=== PATIENT | male | born 1950 | race Caucasian/White ===

== ENCOUNTER 2021-06-20 09:31 | Outpatient (CLI) | payer MEDICARE, SELFPAY ==
--- NOTE | 2021-06-20 11:08 | ECG_ITS ---
Measurements Intervals [place] Rate: 52 P: 0 MS: 111 QRS: 25 QRSD: 146 T: 26 QT: 407 QTc: 380 Interpretive Statements SINUS BRADYCARDIA IVCD, WITH FEATURES OF BOTH RBBB/LBBB ABNORMAL ECG Electronically Signed On 06-20-2021 11:41:26 CDT by Waldo Parks D.O.
[2021-06-20 11:50] LABS: Basophils Absolute Auto 0.1 K/mm3 (0.0-0.1); Basophils Percent Auto 0.9 % (0.2-1.2); Eosinophils Absolute Auto 0.2 K/mm3 (0-0.3); Eosinophils Percent Auto 2.3 % (0-4.4); Hematocrit 48.8 % (42.0-52.0); Hemoglobin 15.9 g/dL (14.0-18.0); Immature Granulocyte Absolute 0.06 K/mm3 (0.00-0.031); Immature Granulocyte Percent A 0.7 % (0-0.5); Lymphocytes Percent Auto 23.2 % (18.3-44.2); Mean Corpuscular HGB Conc 32.6 g/dl (32-36); Mean Corpuscular Hemoglobin 29.5 pg (26-34); Mean Corpuscular Volume 90.5 fl (80-100); Mean Platelet Volume 10.4 fl (7.4-10.4); Monocytes Absolute Auto 0.6 K/mm3 (0.1-0.6); Monocytes Percent Auto 6.5 % (2.6-8.5); Neutrophils Absolute Auto 5.7 K/mm3 (1.3-6.7); Neutrophils Percent Auto 66.4 % (45.5-73.1); Platelet Count Result 169 k/mm3 (150-375); Red Blood Count 5.39 M/mm3 (4.6-6.20); Red Cell Distribution Width 13.9 % (11.5-14.5); White Blood Count 8.6 K/mm3 (4.5-10.0)
[2021-06-20 12:00] LABS: INR 0.9; Prothrombin Time 12.2 Seconds (11.1-14.7)
[2021-06-20 12:01] LABS: Partial Thromboplastin Time 29.4 SECONDS (22.3-36.8)
[2021-06-20 12:02] LABS: Alanine Aminotransferase 20 U/L (4-50); Albumin Level 4.4 g/dL (3.5-5.1); Alkaline Phosphatase 76 U/L (38-126); Anion Gap 8 mmol/L (8-16); Aspartate Amino Transferase 21 U/L (17-59); Bilirubin,Total 0.7 mg/dL (0.2-1.3); Blood Urea Nitrogen 22 mg/dL (9-20); Calcium 9.3 mg/dL (8.4-10.2); Carbon Dioxide 26 mmol/L (22-30); Chloride 106 mmol/L (98-107); Estimated Glomerular Filt Rate > 60; Glucose 90 mg/dL (65-110); Potassium 4.2 mmol/L (3.4-5.0); Sodium 140 mmol/L (137-145)
== END 2021-06-20 09:32 | disposition home or self-care (01) ==
LOC: ANHSURGERY 09:40
PROVIDERS: Visit Provider Urology
DX: C61 Malignant neoplasm of prostate (principal); Z01.818 Encounter for other preprocedural examination; R94.31 Abnormal electrocardiogram [ECG] [EKG]
CPT/HCPCS: 36415; 80053; 85025; 85610; 85730; 87086; 87088; 93005

== ENCOUNTER 2021-07-05 00:55 | Day surgery (SDC) | payer MEDICARE, SELFPAY ==
[2021-06-20 10:11] VITALS: BP 152/72; PULSE 57; RESP 18; TEMP 37.1; O2SAT 96; BMI 35.2
[2021-07-05] VITALS (17 sets, daily range): BP systolic 111–162; BP diastolic 56–87; PULSE 57–93; RESP 12–24; TEMP 36.1–36.9; O2SAT 95–100
[2021-07-05] MEDS: LACTATED RINGERS 1,000 ML 30 ML IV CONT ×2 (06:30→12:30)
--- NOTE | 2021-07-05 06:41 | P.PNAN_ITS ---
Anes - Initial Pre Proc Eval Procedure: Operation Date: 07/05/21 07:30 Proposed Procedures p Robotic Assisted Nerve Sparing Prostatectomy, Possible Bilateral Lymph Node Dissection - Jerry Guadarrama MD Date/Time: 07/05/21 06:41 Surgeon: Jerry Guadarrama MD Pre Op Diagnosis: prostate cancer Patient Data Age: 71 Gender: M Height: 1.83 m Weight: 117.7 kg Last Vital Signs Temp 37.1 C 06/20/21 10:11 Pulse 57 L 06/20/21 10:11 Resp 18 06/20/21 10:11 BP 152/72 H 06/20/21 10:11 Pulse Ox 96 06/20/21 10:11 Allergies Allergy/AdvReac Type Severity Reaction Status Date / Time No Known Allergies Allergy Verified 07/05/21 06:40 Home Medications Medication Instructions Recorded Confirmed Type multivitamin [Multiple Vitamin] 1 tablet PO DAILY 06/20/21 06/20/21 History naproxen sodium [Aleve] 440 mg PO BID PRN 06/20/21 06/20/21 History omega-3 fatty acids [[place] 3] 500 mg PO DAILY 06/20/21 06/20/21 History vit C-E-zinc fh-nvxw-eew-zeax 1 cap PO DAILY 06/20/21 06/20/21 History [ICaps AREDS2] Patient hx anesthesia problems: none Family hx anesthesia problems: none [facility] Past Medical History Medical History (Updated 07/05/21 @ 06:41 by Jayant Lomas MD) Obesity MICHELLE on CPAP Prostate cancer Surgical History Surgical History (Updated 07/05/21 @ 06:42 by Jayant Lomas MD) H/O exploratory laparotomy History of appendectomy History of cholecystectomy History of knee surgery Social History Social History Smoking packs per day: 0.75 Smoking cigarettes per day: 15.0 Years smoked: 30 Smoking pack-years: 22.50 Smoking status: Former smoker Tobacco type: cigarettes Smoking end date: 04/28/00 Substance use: never Living arrangements: with family Additional living arrangements comments: Spiritual care concerns: No Anes - Eval Final PreProcedure Day of Procedure 07/05/21 06:41 Patient weight: obese Heart: regular rate and rhythm Lungs: clear to auscultation Airway: Mallampati scale class II Neurological: alert and oriented Last oral intake: >/= 8 hours ASA classification: III Emergent: no Anesthetic plan: proceed Anesthesia type and monitoring: general ETT and standard monitoring Informed Consent: The patient's anesthetic plan and its attendant risks and benefits were discussed with the patient/family/POA. Questions were solicited and answers provided to the satisfaction of the patient/family/POA.
--- NOTE | 2021-07-05 07:27 | P.HP_ITS ---
H&P: HPI History of Present Illness Date/Time: 07/05/21 07:27 Chief Complaint: Adenocarcinoma of prostate Narrative: 71 year old male with adenocarcinoma of prostate presents for robotic assist nerve sparing prostatectomy with possible plnd. Review of Systems Review of Systems: All systems reviewed & are unremarkable except as noted in HPI and below PMFSH Past Medical History Medical History Obesity MICHELLE on CPAP Prostate cancer Surgical History Surgical History H/O exploratory laparotomy History of appendectomy History of cholecystectomy History of knee surgery Social History Social History Smoking packs per day: 0.75 Smoking cigarettes per day: 15.0 Years smoked: 30 Smoking pack-years: 22.50 Smoking status: Former smoker Tobacco type: cigarettes Smoking end date: 04/28/00 Substance use: never Living arrangements: with family Additional living arrangements comments: Spiritual care concerns: No Meds Home Medications and Allergies Home Medications Medication Instructions Recorded Confirmed Type multivitamin [Multiple Vitamin] 1 tablet PO DAILY 06/20/21 07/05/21 History naproxen sodium [Aleve] 440 mg PO BID PRN 06/20/21 07/05/21 History omega-3 fatty acids [[place] 3] 500 mg PO DAILY 06/20/21 07/05/21 History vit C-E-zinc ik-zeje-qyt-zeax 1 cap PO DAILY 06/20/21 07/05/21 History [ICaps AREDS2] Allergies Allergy/AdvReac Type Severity Reaction Status Date / Time No Known Allergies Allergy Verified 07/05/21 06:40 Vital Signs Vital Signs - 24 hr 07/05/21 06:42 Temperature 36.1 C L Pulse Rate 63 Respiratory Rate 16 Blood Pressure 162/87 H Pulse Oximetry 98 Exam Const: General: cooperative, comfortable, alert and awake HENMT: Head: normal to inspection Eyes: General: appearance normal, both eyes and all related structures Resp: Effort & Inspection: normal respiratory effort Cardio: Rate: regular rate Rhythm: regular rhythm Skin: General skin exam: normal color Assessment and Plan Assessment and plan (1) Adenocarcinoma of prostate: Code(s): C61 - Malignant neoplasm of prostate Status: Acute Assessment and Plan: robotic assist nerve sparing prostatectomy with possible plnd. He is aware that due to his exploratory lap, if we are unable to place our ports will terminate procedure and will proceed with xrt.
--- NOTE | 2021-07-05 07:32 | WPDHPUPDATE1 ---
History and Physical Update Update Date/Time: 07/05/21 07:32 History and Physical has been reviewed, including an updated exam of the patient. There are NO changes in the patient's condition. Risks, benefits, and alternatives have been discussed and questions answered. Patient agrees to proceed with procedure.
[2021-07-05] MEDS: ceFAZolin 2 GM/D5W 50 ML 2 GM/50 ML BAG IVPB (07:36)
[2021-07-05] MEDS: ceFAZolin SODIUM 1 GM VIAL 2 GM IV PUSH (11:37)
--- NOTE | 2021-07-05 12:06 | W.PM.PROC2 ---
Procedure Note - Detailed Date of Procedure 07/05/21 Pre-op Diagnosis prostate cancer Post-op Diagnosis same Procedure Performed Robotic assisted nerve-sparing prostatectomy with right pelvic lymph node dissection Surgeon Jerry Guadarrama MD Anesthesia general Description of Procedure Patient was taken to the operative suite correctly identified. Once anesthesia was obtained was placed in low-lying dorsal lithotomy position and prepped draped usual sterile fashion. Eighteen Monegasque Márquez was placed with 20 cc in the balloon. Supraumbilical incision was made carried down to the rectus fascia. Given that he had a prior exploratory laparotomy we did a Sarah approach. Trocar was placed easily into the abdomen. Camera port was placed. He did have some adhesions but these were superior to the areas that we needed to place our working ports. Working ports were placed in appropriate locations. Patient was placed in steep Trendelenburg and the robot was docked. We did a posterior approach. Seminal vesicles were dissected out in their entirety and this passes were transected. Plane between the rectum and the prostate was developed. Bladder was then taken down and the space of Retzius developed bilaterally. Puboprostatic ligaments were taken down. Superficial vein was fulgurated. Dorsal venous complex was isolated using 0 Vicryl in secured to the pubic bone. Bladder neck sparing procedure was then performed. Upon and opening the anterior wall the bladder was noted he had that small little polyp at the 9 o'clock position. We went ahead and excised this and sent it for analysis. We then transected the posterior bladder neck. Seminal vesicles and vas were isolated. Bilateral nerve-sparing was performed the standard fashion. Clips were placed on the vascular pedicles. Dorsal venous complex was then transected. Urethra was also transected. Specimen was placed in Endo-Catch bag. We did right pelvic lymph node dissection with the boundaries being the external iliac vein, obturator nerve, Fritz ligament, bifurcation of the vessels. Clips were placed proximally and distally. Surgicel was placed in the obturator fossa along the neurovascular complex. We then placed a Elan stitch in using 0 Vicryl. Bladder neck was reanastomosed to the urethral stump with good approximation mucosa using a V lock suture in a running fashion. Eighteen Monegasque Márquez was placed inflated with 12 cc in the balloon. 150 cc of saline was used to irrigate the bladder. There was no evidence of extravasation at this time. Lap count needle count sponge counts were correct. I should state that there was some tissue along the rectal wall right near the right apex of the prostate which I excised and sent as a separate specimen also. All lap, needle count sponge counts were correct. A Brent drain was placed in the 3rd port site. This was secured. Robot was undocked. Specimen was brought out through the midline incision. Rectus fascia was closed using 0 Vicryl. Subcuticular stitches were placed. 1% lidocaine was used anesthetize the skin and the ports. Patient is taken recovery room stable condition. Estimated Blood Loss 100 Drains Yes Packing No Pathology yes Complications No immediate complications Condition stable Disposition PACU
[2021-07-05] MEDS: fentaNYL CITRATE INJ (*CRX) 100 MCG/2 ML VIAL 25 MCG IV PUSH ×8 (13:14→13:43)
[2021-07-05] MEDS: HYDROmorphone HCL INJ (*CRX) 1 MG/ML SYR 0.5 MG IV PUSH ×4 (14:02→14:17)
--- NOTE | 2021-07-05 14:40 | ADMGEN ---
This patient, Jayant Miller, was admitted to Medical Room 248-01. Patient/family oriented to hospital policies and general routines including ID bracelet, bed and alarms, visiting hours, pain management, procedures, bathroom and other care routines, personal items, smoking policy, room service/diet, and visiting hours. Information on how to activate the Rapid Response Team has been discussed. Patient/Family are encouraged to report perceived risks to care and to ask questions if they do not understand what they are told or what they should do.
[2021-07-05] MEDS: LACTATED RINGERS 1,000 ML 125 ML IV CONT (15:43)
[2021-07-05] MEDS: HYDROcodone/acetaminophen (*CRX) 5-325 MG TABLET 2 TAB PO (18:04)
[2021-07-06 00:10] VITALS: BP 119/55; PULSE 76; RESP 18; TEMP 37.1; O2SAT 99
[2021-07-06] MEDS: LACTATED RINGERS 1,000 ML 125 ML IV CONT ×2 (00:32→09:14)
[2021-07-06 03:25] VITALS: O2SAT 95
[2021-07-06 04:10] VITALS: BP 131/62; PULSE 61; RESP 16; TEMP 37.1; O2SAT 99
[2021-07-06 05:57] LABS: Hematocrit 40.3 % (42.0-52.0); Hemoglobin 13.2 g/dL (14.0-18.0)
[2021-07-06 05:58] LABS: Anion Gap 5 mmol/L (8-16); Blood Urea Nitrogen 14 mg/dL (9-20); Calcium 8.3 mg/dL (8.4-10.2); Carbon Dioxide 27 mmol/L (22-30); Chloride 104 mmol/L (98-107); Estimated CRCL calculation 78 ml/min; Estimated Glomerular Filt Rate > 60; Glucose 125 mg/dL (65-110); Potassium 4.1 mmol/L (3.4-5.0); Sodium 136 mmol/L (137-145)
[2021-07-06 07:24] LABS: Glucose Point of Care 101 mg/dl (65-105)
[2021-07-06 07:52] VITALS: BP 128/61; PULSE 68; RESP 16; TEMP 36.9; O2SAT 99
[2021-07-06] MEDS: HYDROcodone/acetaminophen (*CRX) 5-325 MG TABLET 1 TAB PO (08:25)
[2021-07-06] MEDS: levoFLOXacin 500 MG TABLET PO (08:27)
--- NOTE | 2021-07-06 08:44 | WPDANESPN ---
Anes - Prog Note Post-Op Date/Time: 07/06/21 08:44 Cardiovascular status: normal Respiratory status: normal Airway patency: baseline Mental status: baseline Post-Op hydration status: normal Vital Signs: Last Vital Signs Temp 98.4 F 07/06/21 07:52 Pulse 68 07/06/21 07:52 Resp 16 07/06/21 07:52 BP 128/61 07/06/21 07:52 Pulse Ox 99 07/06/21 07:52 Pain Score (VAS): 5 I/O: Intake & Output 07/05/21 07/06/21 07/06/21 23:59 07:59 15:59 Intake Total 1120 100 Output Total 2000 Balance 1120 -1900 Laboratory Tests 07/06/21 05:28 07/06/21 05:28 07/05/21 07/06/21 07/06/21 06:20 05:28 05:28 Hgb 13.2 L Hct 40.3 L Sodium 136 L Potassium 4.1 Chloride 104 Carbon Dioxide 27 Anion Gap 5 L BUN 14 D Creatinine 1.00 Estim Creat Clear Calc 78 Estimated GFR > 60 Glucose 125 H POC Capillary Glucose Calcium 8.3 L Blood Type O Positive Antibody Screen Negative 07/06/21 06:56 Hgb Hct Sodium Potassium Chloride Carbon Dioxide Anion Gap BUN Creatinine Estim Creat Clear Calc Estimated GFR Glucose POC Capillary Glucose 101 Calcium Blood Type Antibody Screen Post-procedural complaints: none and other (persistent hiccups. reassured pt most likely d/t air on diaphragm. encouraged ambulation. ) Patient Feedback: Patient satisfied with anesthetic care. . Other Findings: persistent hiccups. reassured pt most likely d/t air on diaphragm. encouraged ambulation. however, pt states hiccups seem to follow eating or drinking so cannot rule out vagal stimulation vs. phrenic. encouraged pt to discuss with Dr. Guadarrama.
--- NOTE | 2021-07-06 12:59 | WPDUROPN2 ---
Progress Note: A&P Assessment and Plan (1) Adenocarcinoma of prostate: Code(s): C61 - Malignant neoplasm of prostate Status: Acute Assessment and Plan: The patient will be discharged home with his KEM drain and meneses. KEM drain will be removed in the office on Sunday and meneses after his cystogram next week. Please teach KEM drain and meneses care. Subjective Subjective Date/Time Seen: 07/06/21 12:59 POD #1 Robotic assisted nerve-sparing prostatectomy with right pelvic lymph node dissection Patient doing well, his KEM drain is still putting out a moderate amount of drainage, meneses is draining well to gravity, no blood in urine. Incisional pain is well managed, no drainage or edema is present. Tolerating diet and activity. Review of Systems Cardiovascular: Cardiovascular: Denies chest pain Respiratory: Respiratory: Reports no additional respiratory complaints Gastrointestinal: Gastrointestinal: Denies abdominal pain, Denies nausea and Denies vomiting Genitourinary: Genitourinary: Denies hematuria and Denies flank pain Exam Resp: Effort & Inspection: normal respiratory effort Cardio: Rate: regular rate GI: Inspection: incision (no edema, drainage or rednes present) and other (KEM drain, draining bloody drainage.) GI Palp: Yes Soft to palpation and No Tenderness to palpation present (GI) : General: Yes no CVA tenderness Urinary Catheter: Urinary Catheter: patent and draining and urine clear Extrem: General: no edema Objective Data Vital Signs Vital Signs: Vital Signs - 24 hr 07/05/21 13:00 07/05/21 13:15 07/05/21 13:30 Temperature Pulse Rate 64 61 66 Respiratory Rate 20 16 14 Blood Pressure 130/70 125/72 142/70 H Pulse Oximetry 95 96 96 07/05/21 13:45 07/05/21 14:00 07/05/21 14:15 Temperature Pulse Rate 90 71 93 Respiratory Rate 14 12 16 Blood Pressure 140/66 154/74 H 119/74 Pulse Oximetry 97 97 100 07/05/21 14:21 07/05/21 14:25 07/05/21 14:40 Temperature 97.2 F L Pulse Rate 93 88 Respiratory Rate 12 14 Blood Pressure 130/79 144/71 H Pulse Oximetry 98 98 100 07/05/21 15:02 07/05/21 15:25 07/05/21 16:25 Temperature 97.2 F L 98.0 F 98.2 F Pulse Rate 77 75 73 Respiratory Rate 14 14 14 Blood Pressure 145/64 H 134/66 146/74 H Pulse Oximetry 96 100 100 07/05/21 20:10 07/05/21 22:56 07/06/21 00:10 Temperature 98.5 F 98.8 F Pulse Rate 64 76 Respiratory Rate 17 18 Blood Pressure 136/56 L 119/55 L Pulse Oximetry 99 100 99 07/06/21 03:25 07/06/21 04:10 07/06/21 07:52 Temperature 98.7 F 98.4 F Pulse Rate 61 68 Respiratory Rate 16 16 Blood Pressure 131/62 128/61 Pulse Oximetry 95 99 99 Intake/Output Intake/Output: Intake & Output 07/03/21 07/04/21 07/05/21 07/06/21 23:59 23:59 23:59 23:59 Intake Total 1870 1100 Output Total 315 2000 Balance 1555 -900 Meds/Results Medications: Active Medications Generic Name Dose Route Start Last Admin Trade Name Freq PRN Reason Stop Dose Admin Hydrocodone Bitart/Acetaminophen 1 tab 07/05/21 14:25 07/06/21 08:25 Hydrocodone/Acetaminophen (*Crx) 5-325 Mg Tablet PO 1 tab Q6H PRN Administration Pain Rated 1-3 Hydrocodone Bitart/Acetaminophen 2 tab 07/05/21 14:25 07/05/21 18:04 Hydrocodone/Acetaminophen (*Crx) 5-325 Mg Tablet PO 2 tab Q6H PRN Administration Pain Rated 4-6 Hyoscyamine 0.125 mg 07/05/21 14:25 Hyoscyamine Sulfate 0.125 Mg Tablet SUBLINGUAL Q4H PRN Bladder Spasm Lactated Ringer's 1,000 mls @ 125 mls/hr 07/05/21 14:25 07/06/21 09:14 Lr - Lactated Ringers Iv IV CONT 125 mls/hr .Q8H PARKER Administration Ketorolac Tromethamine 15 mg 07/05/21 14:25 Ketorolac 15 Mg/Ml Vial (*Bkc) IV PUSH 07/06/21 14:24 Q6H PRN Pain Rated 4-6 Levofloxacin 500 mg 07/06/21 09:00 07/06/21 08:27 Levofloxacin 500 Mg Tablet PO 500 mg DAILY PARKER Administration Morphine Sulfate 1 mg 07/05/21 14:25 Morphine Sulfate (*C
[2021-07-06 13:51] VITALS: BP 149/71; PULSE 69; RESP 18; TEMP 36.6; O2SAT 100
--- NOTE | 2021-07-06 15:12 | PC.NURSE ---
On 07/06/21, the student, [RICHMOND STEEN], provided care and completed [facility] documentation on this patient. I have reviewed the student's documentation and agree with the findings.
== END 2021-07-06 15:06 | disposition home or self-care (01) ==
LOC: ANHSURGERY 05:56 → ANH2MED 19:19
PROVIDERS: Visit Provider Urology
PROC: 0VT04ZZ Resection of Prostate, Percutaneous Endoscopic Approach (ICD-10-PCS; CPT 55867; principal; 2021-07-05 07:30)
DX: C61 Malignant neoplasm of prostate (principal); N32.89 Other specified disorders of bladder; R06.6 Hiccough; G47.33 Obstructive sleep apnea (adult) (pediatric); E66.9 Obesity, unspecified; Z68.34 Body mass index [BMI] 34.0-34.9, adult; Z87.891 Personal history of nicotine dependence; Z79.899 Other long term (current) drug therapy
CPT/HCPCS: 55866; 38571; S2900; 36415; 80048; 82948; 85014; 85018; 86850; 86900; 86901; 88305; 88307; 88309; 88342; A9270; J0690; J1100; J1170; J2250; J2370; J2405; J2704; J2710; J3010; J7030; J7120

== ENCOUNTER 2021-07-13 08:12 | Outpatient (CLI) | payer MEDICARE, SELFPAY ==
--- NOTE | ~2021-07-13 | XR_ITS ---
EXAMINATION: XR cystogram DATE: 07/13/2021 09:09 INDICATION: Prostate cancer status post prostatectomy TECHNIQUE: Water-soluble contrast was gravity-infused through the patient's Márquez catheter. Multiple fluoroscopic images were obtained. Fluoroscopy exposure time was 1.0 minutes. The DAP for this proced ure was 46 Gycm2. COMPARISON: None. FINDINGS: The bladder contour is normal. No contrast extravasation is identified. There appears to be soft tissue gas in the medial thighs and possibly within the perineum. The visualized bowel gas hernan esteban is normal. IMPRESSION: 1. No evidence of contrast extravasation. 2. Possible soft tissue gas in the medial thighs and peroneal which would likely be related to recent surgery. Clinically correlate. Reviewed, dictated and finalized at location A. IMPRESSION: 1. No evidence of contrast extravasation. 2. Possible soft tissue gas in the medial thighs and peroneal which would likel y be related to recent surgery. Clinically correlate.
== END 2021-07-13 08:13 | disposition home or self-care (01) ==
LOC: ANHIMG 08:21
PROVIDERS: Visit Provider Urology
DX: C61 Malignant neoplasm of prostate (principal)
CPT/HCPCS: 51600; 74430; Q9967

== ENCOUNTER 2022-10-25 10:05 | Outpatient (CLI) | payer MEDICARE, SELFPAY | END 2022-10-25 10:06 | disposition home or self-care (01) | PROVIDERS: Visit Provider Surgery | DX: K43.2 Incisional hernia without obstruction or gangrene (principal); Z01.818 Encounter for other preprocedural examination | CPT/HCPCS: 36415; 86850; 86900; 86901 ==

== ENCOUNTER 2022-10-31 08:05 | Day surgery (SDC) | payer MEDICARE, SELFPAY ==
--- NOTE | 2022-10-16 16:07 | PC.NURSE ---
Report to the Outpatient Waiting Room, entrance under the green pavilion located off [facility], at time _0730 on date _10/31/22 . Planned Procedure Time: __929 . Time changes happen often and if your time is changed the preop area will call you the afternoon before. - You and your visitor will be asked to self-screen and do not enter if you have any COVID symptoms. - Only one visitor is requested with a max of two and NO children visitors are allowed at this time. - The patient visitor may be requested to leave or wait in car when not with patient due to distancing restrictions. - A mask is optional within the hospital. Patients may have clear liquids (water, carbonated beverages, clear teas, apple juice) until 3 hours prior to surgery with a maximum of 20 ounces. - No food from midnight until time of surgery - Infants may have breast milk until 4 hours before surgery, infant formula 6 hours prior to surgery. - Children will be allowed to drink immediately following surgery. If applicable, please bring a bottle or sippy cup to assist with drinking. Juice, water, soda, and popsicles are readily available. For infants on formula, please bring formula the day of surgery. Pacifiers are allowed. Take the following medications with a SIP of water the morning of surgery: ___NONE Medications to discontinue per physician __ALL VITAMINS AND SUPPLEMENTS 3 DAYS PRE OP Date to take last dose____10/27/22 HIBICLENS SHOWER MORNING OF SURGERY Please no make-up, nail divehi, hairspray, perfume, deodorant, or body powder the day of surgery. No jewelry (including any body piercings) or valuables the day of surgery, leave them at home. Please take a shower or bath the night before, or the morning of, surgery with an antibacterial soap. Wear comfortable, loose fitting clothing. Children are encouraged to wear pajamas. - Jewelry must be removed prior to entering the operating room. Rings and piercings that are not removed may be cut off. - The hospital will not accept responsibility for valuables. - Please leave all valuables, including medications, at home the day of surgery. If you are going home after surgery, a licensed reach lift truck driver must drive you home. - NO public transportation without another adult if you receive anesthesia. - We recommend that an adult stay with you for 24 hours following discharge. - We also recommend that you do not drive, make important decision, drink alcoholic beverages, or take any drugs that were not prescribed by your health care provider for at least 24 hours after your discharge time. For Pediatric surgeries, we recommend two adults accompany the child home. Follow any additional instructions given to you from your surgeon. If you or anyone in your household have experienced Covid symptoms in the past week, please notify your surgeon or the nurse liaison at the phone number below for possible testing. Telephone instructions given to __PATIENT AND DAJUAN and asked if any additional questions and then verbalized understanding. Patient advised to call surgeon office or pre surgery nurse liaison [phone] if any additional questions.
[2022-10-16 16:16] VITALS: BMI 35.2
[2022-10-31] VITALS (11 sets, daily range): BP systolic 118–142; BP diastolic 55–68; PULSE 54–69; RESP 12–18; TEMP 37; O2SAT 92–100
[2022-10-31] MEDS: LACTATED RINGERS 1,000 ML 30 ML IV CONT ×2 (08:49→13:18)
[2022-10-31] MEDS: ACETAMINOPHEN 500 MG TABLET 1000 MG PO (08:51)
[2022-10-31] MEDS: KETOROLAC 15 MG/ML VIAL (*BKC) IV PUSH (08:51)
--- NOTE | 2022-10-31 10:33 | WPDANESEPPF ---
Anes - Initial Pre Proc Eval Procedure: Operation Date: 10/31/22 10:30 Proposed Procedures p Laparoscopic Incisional Hernia Repair with Mesh Davinci Assisted - Gilbert Doherty DO Date/Time: 10/31/22 10:33 Surgeon: Gilbert Doherty DO Pre Op Diagnosis: incisional hernia Patient Data Age: 72 Gender: M Height: 1.83 m Weight: 120 kg Allergies Allergy/AdvReac Type Severity Reaction Status Date / Time codeine AdvReac Intermediate Nausea and Verified 10/31/22 08:38 Vomiting fluticasone AdvReac SHORTNESS Verified 10/31/22 08:38 OF BREATH Home Medications Medication Instructions Recorded Confirmed Type multivitamin 1 tablet PO DAILY 06/20/21 10/31/22 History naproxen sodium 220 mg tablet 440 mg PO BID PRN Pain 06/20/21 10/31/22 History (Aleve) omega-3 fatty acids 500 mg PO DAILY 06/20/21 10/31/22 History vit C 250 mg-vit E 200 unit-zinc 1 cap PO DAILY 06/20/21 10/31/22 History ox 12.5 iy-ejnhxk-qwjajm-zeax capsule (ICaps AREDS2) olmesartan 5 mg tablet 5 mg PO DAILY 09/08/22 10/31/22 History Patient hx anesthesia problems: none Family hx anesthesia problems: none Results Review: All pre-operative results and documents have been reviewed as part of the pre-operative evaluation. [facility] Past Medical History Medical History (Updated 09/12/22 @ 09:59 by Azucena Marshall) Hypertension Obesity MICHELLE on CPAP Prostate cancer Surgical History Surgical History (Updated 09/12/22 @ 09:59 by Azucena Marshall) H/O exploratory laparotomy H/O neck surgery H/O prostatectomy 07/05/21 Dr. Guadarrama History of appendectomy History of back surgery History of cholecystectomy History of knee surgery S/P rotator cuff repair Family History Family History Father Lung cancer Sibling Diabetes mellitus Cerebrovascular accident Cancer of kidney Social History Social History Smoking packs per day: 0.5 Smoking cigarettes per day: 10.0 Years smoked: 35 Smoking pack-years: 17.50 Smoking status: Former smoker Tobacco type: cigarettes Second hand tobacco smoke exposure: Yes Additional smoking assessment comments: 10/29/99 Alcohol intake: current Substance use: never Living arrangements: with family Additional living arrangements comments: Spiritual care concerns: No Anes - Eval Final PreProcedure Day of Procedure 10/31/22 10:33 Patient weight: obese Heart: regular rate and rhythm Lungs: clear to auscultation Airway: Mallampati scale class II Neurological: alert and oriented Last oral intake: >/= 8 hours ASA classification: III Emergent: no Anesthetic plan: proceed Anesthesia type and monitoring: general ETT and standard monitoring Results Review: All pre-operative results and documents have been reviewed as part of the pre-operative evaluation. Informed Consent: The patient's anesthetic plan and its attendant risks and benefits were discussed with the patient/family/POA. Questions were solicited and answers provided to the satisfaction of the patient/family/POA.
--- NOTE | 2022-10-31 10:40 | PM.IMHP ---
H&P: HPI History of Present Illness Date/Time: 10/31/22 10:40 Chief Complaint: Incisional hernia Narrative: This is a 72-year-old man who presents for incisional hernia repair. He has a history of a robotic prostatectomy and developed an incisional hernia just above the umbilicus. He denies any changes since last seen in the office. Review of Systems Review of Systems: All systems reviewed & are unremarkable except as noted in HPI and below Constitutional: Constitutional: Denies chills, Denies fever(s), Denies headache(s) and Denies weight loss Eyes: Eyes: Denies change in vision ENT: Denies dizziness, Denies headache(s), Denies neck mass and Denies throat swelling Cardiovascular: Cardiovascular: Denies chest pain, Denies lightheadedness and Denies dyspnea Respiratory: Respiratory: Denies cough, Denies dyspnea and Denies wheezing Gastrointestinal: Gastrointestinal: Denies abdominal pain, Denies change in bowel habits, Denies nausea and Denies vomiting Genitourinary: Genitourinary: Denies hematuria and Denies dysuria Musculoskeletal: Musculoskeletal: Reports as per HPI Integumentary/Breasts: Skin/Breast: Reports as per HPI Neurologic: Denies dizziness and Denies headache(s) Allergic/Immunologic: Allergic/Immunologic: Denies throat swelling and Denies wheezing [facility] Past Medical History Medical History (Updated 09/12/22 @ 09:59 by Azucena Marshall) Hypertension Obesity MICHELLE on CPAP Prostate cancer Surgical History Surgical History (Updated 09/12/22 @ 09:59 by Azucena Marshall) H/O exploratory laparotomy H/O neck surgery H/O prostatectomy 07/05/21 Dr. Guadarrama History of appendectomy History of back surgery History of cholecystectomy History of knee surgery S/P rotator cuff repair Family History Family History Father Lung cancer Sibling Diabetes mellitus Cerebrovascular accident Cancer of kidney Social History Social History Smoking packs per day: 0.5 Smoking cigarettes per day: 10.0 Years smoked: 35 Smoking pack-years: 17.50 Smoking status: Former smoker Tobacco type: cigarettes Second hand tobacco smoke exposure: Yes Additional smoking assessment comments: 10/29/99 Alcohol intake: current Substance use: never Living arrangements: with family Additional living arrangements comments: Spiritual care concerns: No Meds Home Medications and Allergies Home Medications Medication Instructions Recorded Confirmed Type multivitamin 1 tablet PO DAILY 06/20/21 10/31/22 History naproxen sodium 220 mg tablet 440 mg PO BID PRN Pain 06/20/21 10/31/22 History (Aleve) omega-3 fatty acids 500 mg PO DAILY 06/20/21 10/31/22 History vit C 250 mg-vit E 200 unit-zinc 1 cap PO DAILY 06/20/21 10/31/22 History ox 12.5 nl-dhdupw-erouyc-zeax capsule (ICaps AREDS2) olmesartan 5 mg tablet 5 mg PO DAILY 09/08/22 10/31/22 History Allergies Allergy/AdvReac Type Severity Reaction Status Date / Time codeine AdvReac Intermediate Nausea and Verified 10/31/22 08:38 Vomiting fluticasone AdvReac SHORTNESS Verified 10/31/22 08:38 OF BREATH Exam Const: General: no acute distress and alert Orientation/consciousness: patient oriented x3 HENMT: Head: normocephalic and atraumatic Ears: hearing grossly normal bilaterally Face/Nose/Sinus: Normal nares present Mouth: Yes Normal oral and palatal mucosa present Eyes: Periorbital: periorbital findings normal Sclera: sclerae normal EOM: EOMs intact bilaterally Neck: Neck: normal visual inspection, no lymphadenopathy and trachea midline Chest: Chest palpation & inspection: normal inspection of the chest Resp: Effort & Inspection: normal respiratory effort Auscultation: clear to auscultation bilaterally Cardio: Jugular venous distension: no JVD Rate: regular rate Rhythm: regu
--- NOTE | 2022-10-31 10:42 | WPDHPUPDATE1 ---
History and Physical Update Update Date/Time: 10/31/22 10:42 History and Physical has been reviewed, including an updated exam of the patient. There are NO changes in the patient's condition. Risks, benefits, and alternatives have been discussed and questions answered. Patient agrees to proceed with procedure.
[2022-10-31] MEDS: ceFAZolin 3 GM/D5W 100 ML 100 ML IVPB (11:12)
--- NOTE | 2022-10-31 13:05 | W.PM.PROC2 ---
Procedure Note - Detailed Date of Procedure 10/31/22 Pre-op Diagnosis incisional hernia Post-op Diagnosis Same Procedure Performed Laparoscopic 2cm Incisional Hernia Repair with Mesh, da Monty assisted Surgeon Gilbert Doherty DO Anesthesia General and Local (Exparel) Indications This is a 72-year-old man who presents with a periumbilical bulge that he noticed about 6 months ago. He began noticing a bulge just above his umbilicus that has progressively increased in size. He does have some discomfort with activity as well. He has a history of a robotic prostatectomy 1 year ago and he appears to have an incisional hernia within the supraumbilical scar. Discussions were made with the patient about treatment options and decision was made to proceed with robotic assisted laparoscopic incisional hernia repair with mesh. Findings Laparoscopic incisional hernia repair was performed. The patient was found to have a 2 cm incisional hernia just superior to the umbilicus. A robotic intraperitoneal onlay mesh technique was utilized for repair. The patient did have some omental adhesions up to the abdominal wall from his prior open cholecystectomy. These were taken down to allow for adequate visualization of the entire abdominal wall for mesh placement. The hernia defect was closed using 0 Stratafix running absorbable suture. A Ventralight ST 15 cm x 10 cm mesh was then placed within the abdominal cavity and secured circumferentially using 2 0 V lock running absorbable suture. Description of Procedure Procedure as well as risks, benefits, and alternatives were discussed with the patient. Written consent was obtained and placed in chart prior to procedure. Patient was brought back to surgical suite. He was placed supine on operating table. Time-out was done to confirm patient and procedure. He was then intubated by the anesthesia department. A bump was placed under his left hip, and the bed was flexed slightly to extend the space between his costal margin and iliac crest. His abdomen was prepped and draped in sterile fashion using chlorhexidine prep. A 5 millimeter incision was made in the left upper quadrant, and a 5 millimeter Optiview trocar was advanced through the abdominal layers under direct visualization. Once inside the abdominal cavity, carbon dioxide insufflation was used to create a pneumoperitoneum. His abdomen was inspected. An 8 millimeter incision was made in the left lower quadrant, and an 8 millimeter robotic trocar was placed under direct visualization. Another 8 millimeter incision was made in the left lateral abdomen, and an 8 millimeter robotic trocar was placed under direct visualization. Exparel was infiltrated along the lateral abdominal aviles to perform a transversus abdominis plane block bilaterally. The 5 millimeter port was removed, the incision was extended to 12 millimeters, and a 12 millimeter air seal port was placed under direct visualization. A Alonso-Vences cone was also used to place an 0-Vicryl simple interrupted suture at this trocar site. The robotic arms were brought up to the patient's bedside and secured to the ports. The camera and instruments were inserted, and I then moved over to the robotic console and took control of the camera and instruments. After careful thorough inspection of the abdominal cavity, I began my dissection at the hernia. There was some omentum adherent to the hernia defect was taken down using scissors with electrocautery. The omental adhesions to the abdominal wall were also taken down using scissors with electrocautery. The falciform ligament was taken down for several cm cephalad to allow for mesh placement. I then measured the hernia size. The hernia measured 2 cm wide. The fascia was closed using an 0-Stratafix running suture in a vertical fashion. A Ventralight ST 15 cm x 10 cm mesh was then placed within the abdominal cavity. This was oriented vertically with the mesh centered on
[2022-10-31] MEDS: fentaNYL CITRATE INJ (*CRX) 100 MCG/2 ML VIAL 25 MCG IV PUSH ×5 (13:34→14:28)
[2022-10-31] MEDS: traMADol HCL (*CRX) 50 MG TABLET PO (15:26)
== END 2022-10-31 16:40 | disposition home or self-care (01) ==
PROVIDERS: Visit Provider Surgery
DX: K43.2 Incisional hernia without obstruction or gangrene (principal); I10 Essential (primary) hypertension; G47.33 Obstructive sleep apnea (adult) (pediatric); Z85.46 Personal history of malignant neoplasm of prostate; E66.9 Obesity, unspecified; Z68.35 Body mass index [BMI] 35.0-35.9, adult; Z87.891 Personal history of nicotine dependence
CPT/HCPCS: 49591; A9270; C1781; C9290; J0690; J1100; J1170; J1885; J2250; J2405; J2704; J2710; J3010; J7120

== ENCOUNTER 2023-03-28 13:05 | Outpatient (CLI) | payer MEDICARE, SELFPAY ==
--- NOTE | ~2023-03-28 | PE_ITS ---
EXAMINATION: PET_PETPSMAST_PT DATE: 03/28/2023 16:30 INDICATION: Prostate cancer TECHNIQUE: 9.647 mCi of pipflufolastat F-18 (18-F-DCFPyL) was administered i.v. Low dose computed to mography (CT) images were acquired from the base of the brain to the base of the brain to the proxima l thighs for attenuation correction and anatomic localization. Positron emission tomography (PET) dev ges were acquired in the same distribution beginning 73 minutes after injection. Images including fus ed PET/CT images were reconstructed in axial, coronal, and sagittal planes. Automated exposure contro l technique was employed. The dose-length product was 1434.45mGy-cm. COMPARISON: None FINDINGS: Head/neck: Typical pattern of symmetric physiologic increased activity in the lacrimal, parotid and submandibula r glands as well as along the mucosa of the nasal and oral cavities, oral and nasopharynx and glottis . No pathologically enlarged cervical lymphadenopathy or suspicious foci of increased uptake in the v isualized head or neck. Chest: No suspicious pulmonary nodules, pneumonia, pulmonary edema or pleural effusion. Heart size is normal . Aortic valve calcific location. Thoracic aorta is normal in caliber. No pathologically enlarged or PSMA avid thoracic lymphadenopathy. Abdomen/pelvis/proximal thighs: Physiologic renal accumulation and excretion of activity in the kidneys, bladder and along portions o f ureters. Status post prostatectomy. No evident nodules soft tissue deposits or abnormal increased a ctivity distinct from the bladder activity at the prostatectomy bed to suggest residual/local recurre nt disease. Normal degree and slightly heterogenous pattern of increased uptake throughout the liver and spleen without radiologic correlate or dominant PSMA avid lesion. Cholecystectomy clips at the ga llbladder fossa. The pancreas and bilateral adrenal glands are normal. Moderate uptake scattered thro ughout the bowels with typical duodenal and proximal jejunal predominance and without radiologic larry elate, also likely physiologic. No other abnormal foci of increased uptake or pathologically enlarged lymphadenopathy in the abdomen, pelvis or proximal thighs. Musculoskeletal: Likely extravasated soft tissue activity at the site of injection at the right antecubital fossa. Old healed proximal left femoral fracture with subtle tract for a prior since removed internal fixation carrie. C5-C6 anterior spinal fusion with plate and screw fixation. No suspicious lytic, blastic or PSMA avid bone lesions. IMPRESSION: 1. Status post prostatectomy for reported prostate cancer with no evident residual, recurrent or meta static disease. Reviewed, dictated and finalized at location B. IMPRESSION: 1. Status post prostatectomy for reported prostate cancer with no evident resid ual, recurrent or metastatic disease.
== END 2023-03-28 13:06 | disposition home or self-care (01) ==
PROVIDERS: Visit Provider Urology
DX: C61 Malignant neoplasm of prostate (principal)
CPT/HCPCS: 78815; A9595

== ENCOUNTER 2023-04-20 08:28 | Outpatient (CLI) | payer MEDICARE, SELFPAY ==
--- NOTE | ~2023-04-20 | MR_ITS ---
EXAMINATION: MR pelvis wo/w con DATE: 04/20/2023 10:05 INDICATION: Prostate cancer TECHNIQUE: Magnetic resonance imaging (MRI) of the pelvis was performed without and with 20 mL Multih ance intravenous contrast. Fulfilled sequences of the pelvis included axial and coronal T2-weighted S S FSE, axial, sagittal and coronal 2D FIESTA, axial 2D FIESTA FS, axial SSFSE-IR ROBBY, axial dual-echo T1-weighted FSPGR, axial and coronal T1 weighted LAVA, 3D axial T2 Cube, axial diffusion-weighted SE with apparent diffusion coefficient (ADC) maps. Postcontrast sequences included a time course axial T1-weighted LAVA and sagittal and coronal T1-weighted LAVA. COMPARISON: PET/CT dated 03/28/2023 FINDINGS: Status post prostatectomy with no evident residual or locally recurrent disease at the prostatectomy bed. Bladder is normal with typical tapered appearance at the base of bladder resulting from the pros tatectomy. Multiple diverticula along the sigmoid and visualized descending colon without adjacent co mparison to suggest diverticulitis. Bowels are otherwise unremarkable. Small fat-containing left ingu inal hernia and small bilateral hydroceles. No free fluid in the pelvis. No pathologically enlarged p elvic or inguinal lymphadenopathy. Mild lower lumbar levocurvature with mild spondylosis. No suspicio us bone lesions identified. IMPRESSION: 1. Status post prostatectomy for reported prostate cancer with no evident residual, recurrent or meta static disease. 2. Diverticulosis. Reviewed, dictated and finalized at location A. IMPRESSION: 1. Status post prostatectomy for reported prostate cancer with no evident resid ual, recurrent or metastatic disease. 2. Diverticulosis.
== END 2023-04-20 08:29 | disposition home or self-care (01) ==
PROVIDERS: Visit Provider Radiology Radiation Oncology
DX: C61 Malignant neoplasm of prostate (principal); K57.30 Diverticulosis of large intestine without perforation or abscess without bleeding
CPT/HCPCS: 72197; A9577